=== PATIENT | male | born 1970 | race Caucasian/White ===

== ENCOUNTER 2023-05-10 18:36 | Emergency (ER) | payer MEDICAID, SELFPAY ==
[2023-05-10 18:41] VITALS: BP 133/75; PULSE 101; RESP 18; O2SAT 97; BMI 34.9
--- NOTE | 2023-05-10 18:42 | XRR_ITS ---
PROCEDURE INFORMATION: Exam: XR Left Knee Exam date and time: 05/10/2023 6:58 PM Age: 52 years old Clinical indication: Injury or trauma; Fall; Other: Unknown; Additional info: Fall trauma TECHNIQUE: Imaging protocol: Radiologic exam of the left knee. Views: 3 views. COMPARISON: CR XR femur LT min 2V* [id number] 10/05/2023 18:58 FINDINGS: Bones/joints: Left below-knee amputation. Minimally displaced oblique fracture in the distal diaphysis and lateral metaphysis of the distal femur. No visible extension into the femoral condyle. Knee effusion or hemarthrosis. Prosthesis mount on the distal amputation stump. Soft tissues: Normal. XR/XR knee LT 3V* [id number] IMPRESSION: 1. Minimally displaced fracture in the distal left femur. Suspected hemarthrosis raises the possibility of intra-articular extension into the lateral femoral condyle. Follow-up with CT imaging is suggested.
--- NOTE | 2023-05-10 18:42 | XRR_ITS ---
PROCEDURE INFORMATION: Exam: XR Left Femur Exam date and time: 05/10/2023 6:58 PM Age: 52 years old Clinical indication: Injury or trauma; Fall; Other: Unknown; Additional info: Fall trauma TECHNIQUE: Imaging protocol: Radiologic exam of the left femur. Views: 2 views. COMPARISON: CR (LOW EXM, ) 10/05/2023 18:58 FINDINGS: Bones/joints: Oblique mildly displaced fracture in the distal diaphysis and lateral metaphysis of the femur. The fracture extends to the anterolateral aspect of the femoral condyle. The knee and hip joints appear intact. Left knee effusion/hemarthrosis. Soft tissues: Unremarkable. XR/XR femur LT min 2V* [id number] IMPRESSION: Mildly displaced fracture in the distal left femur with extension to the anterolateral aspect of the femoral condyle. This can be further evaluated with CT imaging.
--- NOTE | 2023-05-10 18:55 | W.ED.EXTPRO ---
HPI - Extremity Problem General: Chief complaint: Extremity Injury, Lower Stated complaint: LEG PAIN Time Seen by Provider: 05/10/23 18:38 History of Present Illness: Patient presents to the ER complaining of left stump pain on his below the knee amputation. Patient stated he was getting off a tractor and his [id number] was there and somehow he missed the step and stepped down really hard in his prosthetic jammed up into his leg and now on the lateral side of his leg knee all the way up through his femur hurts really bad. Patient denies any pain in this area before stepping off his tractor and has no other complaints at this time. Review of Systems General: Reports: 10 or more systems reviewed and unremarkable except in HPI and below Physical Exam Const: COMMON NORMALS: no acute distress, average body habitus, patient oriented x3, no limitations, healthy appearing, alert and well nourished Neck/C-Spine: COMMON NORMALS: no JVD Chest: COMMONS NORMALS: normal inspection of the chest and normal palpation of entire chest wall Resp: COMMON NORMALS: normal respiratory effort, No retractions, No use of accessory muscles and clear to auscultation bilaterally AUSCULTATION: clear to auscultation bilaterally Cardio: COMMON NORMALS: no JVD, regular rate, regular rhythm, S1 normal heart sound present, S2 normal heart sound present, No gallops present (Cardio), No clicks present (Cardio), No murmurs present (Cardio) and No rub (Cardio) RATE: regular rate RHYTHM: regular rhythm HEART SOUNDS: S1 normal heart sound present and S2 normal heart sound present GI: COMMON NORMALS: Normal to inspection, nondistended, normoactive bowel sounds present, Soft to palpation, non-tender, No hepatosplenomegaly present and no masses PALPATION: Yes Soft to palpation and Yes No hepatosplenomegaly present Extremity: NARRATIVE EXTREMITY EXAM: Tender to palpation knee region worsening on the lateral side going up into the femur about chcf up the thigh. No obvious deformity or crepitus noted. Neuro: COMMON NORMALS: patient oriented x3 SENSORIUM/ORIENTATION: Yes alert Course Vital Signs: Vital signs: Vital Signs Pulse Rate 100 05/10/23 21:34 Respiratory Rate 16 05/10/23 21:34 Blood Pressure 145/75 05/10/23 21:34 Pulse Oximetry 96 05/10/23 21:34 Oxygen Delivery Me thod Room Air 05/10/23 18:41 MDM - Extremity (Nontraumatic) Medical Decision Making [facility] in [facility] in [place] Patient had femur x-ray and knee x-ray, followed by a femur CT which showed a comminuted mildly displaced fracture in the distal left femur. Dr. Joya was consulted who said we could place him in a knee immobilizer give him pain medicine and he can follow-up with him in his clinic for further treatment. Upon discussing this with the patient patient would prefer to go back to [facility] in [facility] to the physicians who done his below the knee amputation. Pain medicine will be sent into [facility] pharmacy and reinforced as well as given the patient some pain pills to go home on patient be discharged from the ER in the knee immobilizer and crutches. Differential Diagnosis Unlikely herpes zoster, gout, cellulitis, superficial thrombophlebitis, deep venous thrombosis of upper extremity, lower extremity edema or deep vein thrombosis of lower extremity Medical Records I reviewed the patient's medical records. Lab Data I reviewed the patient's lab results. Radiology Impressions Femur X-Ray 05/10/23 18:42 IMPRESSION: Mildly displaced fracture in the distal left femur with extension to the anterolateral aspect of the femoral condyle. This can be further evaluated with CT imaging. Knee X-Ray 05/10/23 18:42 IMPRESSION: 1. Minimally displaced fracture in the distal left femur. Suspected hemarthrosis raises the possibility of intra-articular extension into the lateral femoral condyle. Follow-up with CT imaging is suggested. Femur CT 05/10/23 20:17 IMPRESSION: 1. Comminuted mildly displaced fracture in the distal left femur involving the lateral femoral condyle and femoral notch as described. 2. Lipohemarthrosis. All radiology interpretation(s) finalized by discharge Discharge Plan Discharge Patient Disposition: Home Clinical Impression: Fracture of distal end of femur Qualifiers: Encounter type: initial encounter Fracture type: closed Fracture morphology: unspecified fracture morphology Laterality: left Qualified Code(s): S72.402A - Unspecified fracture of lower end of left femur, initial encounter for closed fracture Condition: Stable Prescriptions: New hydrocodone-acetaminophen 5-325 mg tablet 1 tab PO Q6H PRN (Reason: pain) Qty: 14 0RF Discharge Orders: Discharge ED (Routine); Ordered 05/10/23 Ordered By: Jim Melton Patient Instructions: Leg Fracture (ED), Crutch Instructions (ED), Knee Immobilizer (ED), Opioid Safety, Pain Management Activity Restrictions/Additional Instructions: You have a distal femur fracture. Please use your crutches to keep your immobilizer on at all times until seen by orthopedics. You will be referred to [facility] in [place]. Our director case management will be calling you within 1-2 business days to arrange this. A prescription for pain medicine will be sent into [facility] pharmacy in [facility]. Please take these as directed as needed. Coding Level of Care Code ED Gas Leak Inspector for Neida Jaime
[2023-05-10] MEDS: fentaNYL 50 mcg/mL INJ 2mL IVP ×2 (19:24→21:29)
[2023-05-10 19:26] VITALS: BP 133/75; PULSE 102; RESP 16; O2SAT 96
--- NOTE | 2023-05-10 20:17 | CTR_ITS ---
PROCEDURE INFORMATION: Exam: CT Left Lower Extremity Without Contrast; Thigh Exam date and time: 05/10/2023 8:48 PM Age: 52 years old Clinical indication: Injury or trauma; Blunt trauma; Thigh or upper leg; Left; Prior surgery; Surgery date: 6+ months; Surgery type: Below knee amputation; Patient HX: Fall stepping off of a tractor. C/O distal femoral pain. Distal femur fracture noted on xray. ; Additional info: Abnormal XR, distal femur RX, fall trauma TECHNIQUE: Imaging protocol: CT of the left lower extremity without contrast was performed. Exam focused on the thigh. Radiation optimization: All CT scans at this facility use at least one of these dose optimization techniques: automated exposure control; mA and/or kV adjustment per patient size (includes targeted exams where dose is matched to clinical indication); or iterative reconstruction. COMPARISON: CR XR femur LT min 2V* [id number] 10/05/2023 18:58 RADIATION DOSE METRICS: Total DLP (mGy-cm): 2013. FINDINGS: Bones/joints: Left knee lipohemarthrosis. Scattered benign bone islands. Oblique mildly displaced fracture in the distal diaphysis and lateral metaphysis of the femur. There is a comminuted impacted fracture in the posterolateral aspect of the lateral femoral condyle with intra-articular extension laterally. This does not involve the weight-bearing surface. An oblique fracture line extends into the femoral notch. The medial femoral condyle, proximal tibia, and proximal fibula appear intact. Soft tissues: Normal. Vasculature: Mild scattered arterial calcifications. CT/CT femur LT wo con* [id number] IMPRESSION: 1. Comminuted mildly displaced fracture in the distal left femur involving the lateral femoral condyle and femoral notch as described. 2. Lipohemarthrosis.
[2023-05-10 21:34] VITALS: BP 145/75; PULSE 100; RESP 16; O2SAT 96
[2023-05-10] MEDS: HYDROmorphone 1 mg/mL INJ 1 mL IVP ×2 (22:22→23:11)
[2023-05-10] MEDS: HYDROcodone-acetaminophen 5-325 mg Tablet 4 TAB PO (23:12)
[2023-05-10 23:29] VITALS: BP 145/75; PULSE 100; RESP 16; O2SAT 96
--- NOTE | 2023-05-13 10:02 | DCPLANNER ---
I contacted patient to see where he would like referral sent in [place], [place]. He said he usually sees [facility] in [place]. He did not have any information for this clinic. I will try to find more information and then send the chart.
--- NOTE | 2023-05-13 10:09 | DCPLANNER ---
I faxed patients chart to [facility] on 05/13/23 at 10:09 am. phone:
== END 2023-05-10 23:44 | disposition home or self-care (01) ==
PROVIDERS: Emergency Provider Emergency Medicine
DX: S72.402A Unspecified fracture of lower end of left femur, initial encounter for closed fracture (principal); Z89.512 Acquired absence of left leg below knee; X50.9XXA Other and unspecified overexertion or strenuous movements or postures, initial encounter
CPT/HCPCS: 73552; 73562; 73700; 96374; 96375; 96376; 99285; J1170; J3010